=== PATIENT | male | born 1970 | race Caucasian/White ===

== ENCOUNTER 2023-03-03 17:24 | Inpatient (IN) | payer OTHER, SELFPAY ==
[2023-03-03 17:26] VITALS: BP 147/109; PULSE 109; RESP 14; TEMP 36.1; O2SAT 98
--- NOTE | 2023-03-03 17:29 | EKG12_ITS ---
Test Reason : CP Blood Pressure : / mmHG Vent. Rate : 103 BPM Atrial Rate : 103 BPM P-R Int : 158 ms QRS Dur : 074 ms QT Int : 332 ms P-R-T Axes : 047 025 072 degrees QTc Int : 434 ms Sinus tachycardia Septal infarct , age undetermined Abnormal ECG Confirmed by QUETA LOPEZ, KEMAL ([id number]), editor & co founder MISSAEL GARCIA ([id number]) on 03/07/2023 10:13:35 AM Referred By: Confirmed By:KEMAL BIRCH MD
[2023-03-03 17:30] VITALS: BMI 27.6
[2023-03-03 17:40] LABS: Absolute Lymphocyte Count 2.58 X10^3/uL (0.83-4.51); Absolute Neutrophil Count 7.1 X10^3/uL (2.0-7.7); Basophil# 0.06 X10^3/uL; Basophil% 0.6 % (0-1); Eosinophil# 0.17 X10^3/uL; Eosinophils% 1.6 % (0-5); Hematocrit 47.2 % (40-54); Lymphocyte # 2.58 X10^3/ul (0.83-4.51); Lymphocyte % 23.8 % (19-41); Mean Corp Hgb Conc 33.9 g/dL (32-36); Mean Corpuscular Hgb 28.2 pg (27.0-32.0); Mean Corpuscular Volume 83.2 fL (80-94); Monocyte# 0.87 X10^3/uL; NRBC Flagged by Analyzer 0 % (0-5); Neutrophil # 7.14 X10^3/uL (2.7-7.7); Neutrophil % 65.7 % (47-70); Platelet Count 270 K/mm3 (150-450); RBC Distribution Width CV 12.8 % (11.6-14.6); RBC Distribution Width SD 38.9 fl (35.1-43.9); Red Blood Count 5.67 M/mm3 (4.6-6.2); White Blood Count 10.9 K/mm3 (4.4-11.0)
[2023-03-03 18:09] LABS: Anion Gap 9 (5-15); BUN 12 mg/dL (7-18); BUN/Creat Ratio 11.2 RATIO (10-20); Calcium,Total 9.7 mg/dL (8.5-10.1); Chloride 99 mmol/L (98-107); Creatinine, Serum 1.07 mg/dL (0.70-1.30); EST Glomerular Filtration Rate 77 mL/min (>60); Est Glom Filt Rate - Afr Amer 93 mL/min (>60); Glucose 270 mg/dL (74-106); Potassium 3.6 mmol/L (3.5-5.1); Sodium Level 133 mmol/L (136-145); Troponin-I HS (w/2H Reflex) 5713 pg/mL (3.0-78.0)
--- NOTE | 2023-03-03 18:35 | RAD_ITS ---
EXAM: XR CHEST, 1 VIEW CLINICAL INDICATION: chest pain TECHNIQUE: Frontal view of the chest. COMPARISON: No relevant prior studies available. FINDINGS: LUNGS AND PLEURAL SPACES: Unremarkable. No consolidation or edema. No pneumothorax. No effusion. HEART: Unremarkable. Cardiac silhouette not enlarged. MEDIASTINUM: Central airways and mediastinal contour are unremarkable. BONES/JOINTS: Unremarkable. SOFT TISSUES: Unremarkable. RAD/Chest 1 View (Portable) IMPRESSION: No radiographic evidence of acute cardiopulmonary disease. Electronically Signed: Micky Sandoval MD at 18:52 EDT ,
--- NOTE | 2023-03-03 18:40 | NURSING ---
NO OLD EKGS
[2023-03-03] MEDS: Aspirin 81 MG TAB.CHEW 324 MG PO (18:42)
[2023-03-03 18:49] LABS: Prothrombin Time (Protime)PT. 12.8 SECONDS (11.7-14.9)
[2023-03-03 18:50] LABS: Partial Thromboplast Time 25.9 Seconds (24.1-36.2)
--- NOTE | 2023-03-03 19:09 | EDS_ITS ---
HPI History of Present Illness Chief Complaint: Chest Pain Narrative Narrative: 52-year-old male with strong family history for early coronary artery disease presents with chest pain since Monday. States his symptoms began when he had left-sided chest pain intermittently. Over the last few days, it has become more constant. He was wearing a tighter shirt which was rubbing underneath his axilla which she thought may have been the cause of his chest discomfort. He denies any nausea or vomiting, or diaphoresis currently. He states his pain became constant today at a 2 or 3 out of 10, but today was more constant and rates it 5-6 out of 10. No real exertional component to his pain as he states he was able to play golf today. He has past medical history of diabetes, and hypercholesterolemia. PFSH PFSH Allergy/AdvReac Type Severity Reaction Status Date / Time Penicillins [PCN] AdvReac Rash Verified 03/03/23 17:26 Social History Smoking Status: Never smoker ROS ROS ED ROS Narrative Constitutional: No fever, no chills. HEENT: No sore throat. No neck pain. No loss of vision. No rhinorrhea. Cardiovascular: Positive chest pain. No palpitations. No pedal edema. Respiratory: No cough, no shortness of breath. Abdominal: No abdominal pain. No nausea or vomiting currently. Genitourinary: No dysuria. No hematuria. Musculoskeletal: No myalgias. No arthralgias. Neurologic: No headaches. No dizziness. No lightheadedness. Positive paresthesias left arm. Skin: No rash. No change in color. Psychiatric: No depression. No anxiety. EXAM Physical Exam Narrative Exam Narrative: Afebrile. Vital signs noted. HEENT: Normocephalic. Atraumatic. PERRL, EOMI. Neck soft and supple. No point tenderness or step off. Cardiovascular: Positive tachycardia. No murmurs, rubs, or gallops appreciated. Respiratory: No tachypnea. Lungs clear to auscultation bilaterally. Gastrointestinal: Abdomen soft, nontender, with normoactive bowel sounds. No rebound or guarding. Neurological: Awake. Alert. Nonfocal, nonlateralizing. Skin: No rash. Normal color. No pallor. Musculoskeletal: No pedal edema. Full range of motion extremities. Const Vital Signs: 03/03/23 17:26 Temperature 97 F L Temperature Source Temporal Pulse Rate 109 H Respiratory Rate 14 Blood Pressure 147/109 H Blood Pressure Mean 121 Pulse Ox 98 Oxygen Delivery Method Room Air Heart Score History: Moderately Suspicious ECG: Normal Age: >45 - <65 years Risk Factors: 1 or 2 Risk Factors Troponin: >/=3 x Normal Limit Score: 5 MDM MDM MDM Narrative Medical decision making narrative: ED protocol chest pain labs were obtained. I interpreted his EKG as sinus tachy cardia at 103 bpm without ectopy or acute ST changes. No STEMI. There is no prior with which to compare. I reviewed his laboratory work and he has a normal white count of 10.9, hemoglobin normal at 16.0, normal platelet count of 270. Coagulation studies are negative with an APTT of 25.9. He is slightly hyponatremic at 133 with a normal potassium of 3.6, chloride normal at 99. Glucose is elevated at 270 consistent with his diabetes, but he has a normal anion gap of 9. I do not feel he is in a diabetic ketoacidosis. My interpretation of his chest x-ray in 1 view shows no acute process, no pneumothorax or pneumonia. I reviewed the radiology report which confirms my independent interpretation. Of significance his initial high-sensitivity troponin is elevated at 5713. I do feel that he has a non-STEMI. He was given baby aspirin and started on a heparin drip with bolus. No discussed patient with Dr. Hylton with cardiology who agrees with admission. I then discussed the patient with Dr. Austin who will admit the patient to the PCU. Patient is in stable condition. History & Record Review Discussion w/independent historian: Patient and Family Additional record(s) reviewed:: No prior records Lab Data Attestation: I reviewed the patient's lab results. Labs: Laboratory Results - last 24 hr 03/03/23 03/03/23 03/03/23 17:30 17:30 17:30 WBC 10.9 RBC 5.67 Hgb 16.0 Hct 47.2 MCV 83.2 MCH 28.2 MCHC 33.9 RDW Std Deviation 38.9 RDW Coeff of Maria Antonia 12.8 Plt Count 270 MPV 10.0 Immature Gran % (Auto) 0.300 Neut % (Auto) 65.7 Lymph % (Auto) 23.8 [place] % (Auto) 8.0 Eos % (Auto) 1.6 Baso % (Auto) 0.6 Absolute Neuts (auto) 7.1 Absolute Lymphs (auto) 2.58 Nucleated RBC % 0 PT 12.8 INR 1.0 APTT 25.9 Sodium 133 L Potassium 3.6 Chloride 99 Carbon Dioxide 25.0 Anion Gap 9 BUN 12 Creatinine 1.07 Est GFR (MDRD) Af Amer 93 Est GFR (MDRD) Non-Af 77 BUN/Creatinine Ratio 11.2 Glucose 270 H Calcium 9.7 Troponin I High Sens 5713 H* Radiography Diagnostic Testing: Clinical Impression(s) from Imaging Studies Chest X-Ray 03/03/23 18:35 IMPRESSION: No radiographic evidence of acute cardiopulmonary disease. Electronically Signed: Micky Sandoval MD at 18:52 EDT Reading Location ID and State: [facility] [place][note 3] / [place] , Service support , Management Discussion w/another healthcare provider: Hospitalist (Dr. Austin) and Buffer Chrome (Dr. Hylton, cardiology) Discharge Plan Triage Chief Complaint: Chest Pain ED Provider: Emery Morton Dx/Rx/DC Orders Primary Care Provider: Gray Silva Referrals: Gray Silva MD [Primary Care Provider] -
--- NOTE | 2023-03-03 19:19 | PCM.HP.STD ---
HPI - General General Date of Admission: 03/03/23 Date of Service: 03/03/23 Chief Complaint: chest pain HPI Narrative BETTY GIL, is a 52 M with a significant history of hyperlipidemia, and diabetes mellitus who presents emergency department with worsening left-sided intermittent chest pain that started 2 days before presentation. The pain later radiated to his right chest. Initially he felt a soft fluctuating fluid in her left armpit and he thought that was causing his symptoms. Also his shirt felt tight so he thought that may be the reason of his chest pain. He tried Pepto-Bismol; Gas-X and lying supine and that gave him some relief. Eating and lying on his left side made his pain worse. Although he denies that exertion worsens his pain on the day of presentation he went golfing and while golfing he felt some left-sided tingling sensation that went into his left fingers. Since his pain started he has had some mild nausea. He denies any diaphoresis or shortness of breath. Patient had 3 back surgeries. With one of the back surgeries his heart rhythm was irregular and he was found to have some inversions in the EKG. [facility] Medical History Diabetes Hyperlipidemia Home Medications glimepiride 4 mg tablet 4 mg PO BID 03/03/23 [History Last Taken Unknown] insulin glargine 100 unit/mL (3 mL) subcutaneous pen (Lantus Solostar U-100 Insulin) 10 unit subcut DAILY 03/03/23 [History Last Taken Unknown] sitagliptin phosphate 100 mg tablet (Januvia) 100 mg PO DAILY 03/03/23 [History Last Taken Unknown] Allergy/AdvReac Type Severity Reaction Status Date / Time Penicillins [PCN] AdvReac Rash Verified 03/03/23 17:26 Family History Other Heart disease Surgical History Previous back surgery Social History Smoking Status: Never smoker ROS ROS Narrative Pertinent positives and pertinent negatives as noted in HPI. All other systems were reviewed and are negative Vital Signs Vital Signs Vital Signs: 03/03/23 17:26 Temperature 97 F L Temperature Source Temporal Pulse Rate 109 H Respiratory Rate 14 Blood Pressure 147/109 H Blood Pressure Mean 121 Pulse Ox 98 Oxygen Delivery Method Room Air Weight Weight: 92.6 kg Body Mass Index (BMI) 27.6 Physical Exam Narrative Physical exam: General: Well-nourished, well-developed. Head: Normocephalic, atraumatic, no tenderness Eyes: Vision is grossly intact. EOMI ENT, no trauma, moist mucous membranes, no rhinorrhea Neck: Nontender, No thyromegaly. CVS: Regular rate and rhythm. S1-S2 present. No murmur, gallop or rub. Respiratory : clear to auscultation bilaterally, chest wall nontender Abdomen: Soft, nontender, nondistended, normal bowel sounds, no masses : Deferred Back: Nontender, no CVA tenderness, no midline spinal tenderness, deformities, step-offs Extremities: Nontender full range of motion, no trauma Skin: Normal color, no trauma, abrasions Neuro: Alert, oriented, cranial nerves II through XII grossly intact. Psychiatry: Normal mood. Normal affect. Not depressed. Not anxious. Results Lab / Micro Data Result Diagrams: 03/03/23 17:30 03/03/23 17:30 Labs: Laboratory Results - last 24 hr 03/03/23 17:30: WBC 10.9, RBC 5.67, Hgb 16.0, Hct 47.2, MCV 83.2, MCH 28.2, MCHC 33.9, RDW Std Deviation 38.9, RDW Coeff of Maria Antonia 12.8, Plt Count 270, MPV 10.0, Immature Gran % (Auto) 0.300, Neut % (Auto) 65.7, Lymph % (Auto) 23.8, [place] % (Auto) 8.0, Eos % (Auto) 1.6, Baso % (Auto) 0.6, Absolute Neuts (auto) 7.1, Absolute Lymphs (auto) 2.58, Nucleated RBC % 0 03/03/23 17:30: Sodium 133 L, Potassium 3.6, Chloride 99, Carbon Dioxide 25.0, Anion Gap 9, BUN 12, Creatinine 1.07, Est GFR (MDRD) Af Amer 93, Est GFR (MDRD) Non-Af 77, BUN/Creatinine Ratio 11.2, Glucose 270 H, Calcium 9.7, Troponin I High Sens 5713 H* 03/03/23 17:30: PT 12.8, INR 1.0, APTT 25.9 Radiology Impression Chest X-Ray 03/03/23 18:35 IMPRESSION: No radiographic evidence of acute cardiopulmonary disease. Electronically Signed: Micky Sandoval MD at 18:52 EDT , Assessment & Plan Assessment/Plan (1) NSTEMI, initial episode of care: (2) Hyperlipidemia: (3) Diabetes: PLAN: Plan NSTEMI Initial High sensitivity troponin was 5, 718. Trend. [address] on a monitored bed at progressive care unit. Impression of chest x-ray by radiology:No radiographic evidence of acute cardiopulmonary disease Actual CXR image was independently visualized. No acute cardiopulmonary process was noted. Actual EKG tracing was independently visualized. EKG tracing showed Q waves in septal leads. Mild sinus tachycardia Received full dose of aspirin in the emergency department. ASA 81 mg p.o. daily ordered SL NTG 0.4 mg prn as needed for chest pain ordered Morphine as needed for pain ordered We will check lipid panel. Statin: Reportedly he has been on multiple statins; and has allergies of muscle aches/cramping with statins. Zetia ordered Anticoagulation: Given heparin drip and started on heparin bolus at emergency department and continued. ED doc discussed with cardiology. Stat EKG as needed for chest pain Lisinopril and metoprolol ordered as blood pressure Tolerates. Diabetes type 2 Blood glucose is not within goal. We will keep patient n.p.o. after midnight in the setting of NSTEMI. If chest pain worsens patient may likely need an immediate cath. If not patient may get a cath in due course. While n.p.o. hold glimepiride. Januvia and Lantus continue. Accu-Chek correction scale insulin ordered. Pseudo-Hyponatremia Mild sodium of 133 Sodium corrected for glucose is 136. Trend BMP. Treatment of diabetes as above. Elevated blood pressure and blood angulus of hypertension Trend Lisinopril metoprolol for non-STEMI ordered. DVT prophylaxis Not indicated as patient's-started on heparin drip for NSTEMI. Charges/Coding Visit Charges Inpatient E&M: 93266 Init Hosp L3
[2023-03-03 19:25] VITALS: BP 149/102; PULSE 105; RESP 15; O2SAT 97
[2023-03-03] MEDS: Heparin Injection (Vial) 5,000 UNIT/ML VIAL 4000 UNIT IV (19:36)
[2023-03-03] MEDS: HEPARIN/D5w 25,000 UNITS 25,000 UNITS/250 ML IV.SOLN. 10 UNITS CONT INF (19:40)
[2023-03-03 19:45] VITALS: O2SAT 97
[2023-03-03 19:49] VITALS: BP 145/96; PULSE 103; RESP 20; TEMP 36.1; O2SAT 94
[2023-03-03 19:50] VITALS: BMI 28.3
[2023-03-03 20:05] VITALS: BP 144/97; PULSE 95; RESP 10; O2SAT 96
[2023-03-03 21:02] VITALS: BMI 27.8
--- NOTE | 2023-03-03 21:05 | ED.RN ---
THIS RN CONFIRMED IV HEPARIN DRIP INFUSING AT 10 ML/HR WITH Patricia KNIGHT RN. AT BEDSIDE . IV INTACT, PATENT, INFUSING. PUMP CONFIRMED AT 2104. CARE ASSUMED BY Patricia KNIGHT RN.
[2023-03-03 22:11] VITALS: O2SAT 95
[2023-03-03 22:26] LABS: Troponin-I HS 7687 pg/mL (3.0-78.0)
[2023-03-03 23:58] LABS: Bedside Glucose 266 mg/dL (74-106)
[2023-03-03] MEDS: Insulin Lispro 100 UNIT/ML INSULN.PEN SC (23:58)
[2023-03-04] VITALS (16 sets, daily range): BP systolic 96–124; BP diastolic 56–88; PULSE 79–89; RESP 16–18; TEMP 36.7–36.9; O2SAT 93–97
[2023-03-04 00:18] LABS: Bedside Glucose 300 mg/dL (74-106)
[2023-03-04 01:50] LABS: Troponin-I HS 9288 pg/mL (3.0-78.0)
[2023-03-04 01:54] LABS: Partial Thromboplast Time 39.3 Seconds (24.1-36.2)
[2023-03-04] MEDS: Heparin Injection (Vial) 5,000 UNIT/ML VIAL IV (02:06)
[2023-03-04] MEDS: Metoprolol(XL)Succ 25 MG Tablet 12.5 MG PO (06:15)
[2023-03-04] MEDS: Lisinopril 2.5 MG Tablet PO (06:15)
[2023-03-04] MEDS: Aspirin E.C. 81 MG Tablet PO (06:15)
[2023-03-04] MEDS: Ezetimibe 10 MG Tablet PO (06:18)
[2023-03-04 06:41] LABS: Bedside Glucose 290 mg/dL (74-106)
--- NOTE | 2023-03-04 08:02 | CON.PCM.CA_ITS ---
Assessment & Plan Assessment/Plan (1) NSTEMI, initial episode of care: PLAN: He does have a history of non-ST elevation myocardial infarction. Present presentation. He underwent a cardiac catheterization this morning which demonstrated the following: Normal left main coronary artery. Left anterior descending artery which is severely diseased with a 90% proximal long lesion involving the first diagonal branch. Left circumflex artery which is nondominant but large with a proximal 80% long lesion. Dominant right coronary artery also severely diseased with a 60% mid segment stenosis and a PDA with an ostial 80% stenosis. Left ventricular systolic dysfunction estimated at 45% with mild anterior hypokinesis. Based on the above angiographic findings I would recommend coronary artery bypass surgery for this patient. (2) Hyperlipidemia: PLAN: We will recommend aggressive risk factor modification with high intensity statin. HPI Consult Data Date of Consult: 03/04/23 HPI Narrative HPI Narrative: BETTY GIL, is a 52 M who presents with chest discomfort and. Described as a sharp discomfort and then radiating to the rest of his chest. He says this has been going on for the last 3 days. Got to be a heaviness associated with activity. He denied any dizziness or diaphoresis near syncope or syncope. He was concerned about the above so he presented to the emergency room. In the emergency room he was evaluated his EKG demonstrated minimal changes but his troponin was noted to be significantly elevated. Cardiology was called for further evaluation and management. He does have a history of hypertension, diabetes mellitus and hyperlipidemia. [facility] Medical History Diabetes Hyperlipidemia Home Medications glimepiride 4 mg tablet 4 mg PO BID 03/03/23 [History Last Taken Unknown] insulin glargine 100 unit/mL (3 mL) subcutaneous pen (Lantus Solostar U-100 Insulin) 10 unit subcut DAILY 03/03/23 [History Last Taken Unknown] sitagliptin phosphate 100 mg tablet (Januvia) 100 mg PO DAILY 03/03/23 [History Last Taken Unknown] Allergy/AdvReac Type Severity Reaction Status Date / Time Penicillins [PCN] AdvReac Rash Verified 03/03/23 17:26 Family History Other Heart disease Surgical History Previous back surgery Social History Smoking Status: Never smoker ROS Constitutional Constitutional: Denies fever(s) or weight loss Eyes Eyes: Reports systems reviewed and no addt'l complaints, except as documented ENT HEENT: Reports systems reviewed and no addt'l complaints, except as documented Cardiovascular Cardiovascular: Reports chest pain at rest and chest pain with activity; Denies dyspnea at rest, dyspnea on exertion, edema, palpitations or paroxysmal nocturnal dyspnea Respiratory/Chest Respiratory/Chest: Denies dyspnea on exertion, productive cough, shortness of breath at rest or shortness of breath with exertion Gastrointestinal Gastrointestinal: Denies change in bowel habits, nausea, vomiting or weight changes Genitourinary Genitourinary: Denies difficulty urinating Musculoskeletal Musculoskeletal: Denies joint stiffness or muscle weakness Integumentary Integumentary: Denies lesions Neurologic Neurologic: Denies dizziness or syncope Psychiatric Psychiatric: Denies anxiety Endocrine Endocrinology: Denies excessive sweating or fatigue Hematologic/Lymphatic Hematologic/Lymphatic: Denies anemia Allergic/Immunologic Allergic/Immunologic: Denies seasonal rhinorrhea Physical Exam Const alert, oriented x3 and no apparent distress General Appearance: cooperative HEENT hearing grossly normal bilaterally Head and Scalp: atraumatic Eyes EOMs intact bilaterally Neck General: normal visual inspection Chest inspection of chest normal and palpation of chest normal Resp normal respiratory effort Auscultation: clear to auscultation bilaterally Cardio regular rate, regular rhythm, S1 normal heart sound and S2 normal heart sound Jugular Venous Distention: JVD GI normal to inspection, nondistended, normoactive bowel sounds Extremity normal capillary refill and no pedal edema Peripheral Pulses: Yes pulses 2+ throughout and femoral pulses present Skin no rashes or lesions noted Neuro oriented x3 and CN's II-XII intact bilaterally Psych Appearance: grossly normal and appropriate Risk Stratification Risk Stratification Applicable: Yes Age >/= 65: No >/= 3 CAD Risk Factors (HTN, HLD, DM, family hx of CAD, or current smoker): No Aspirin Use in the Past 7 Days: No Severe Angina (>/= episodes in 24 hours): No EKG ST Changes >/= 0.5mm: No Positive Cardiac Marker: Yes CANDELARIO Risk Stratification Score: 1 CANDELARIO % Risk: 5% Risk Objective Data Vital Signs: Vital Signs Temp Pulse Resp BP Pulse Ox O2 Del Method 98.5 F 89 16 124/88 H 97 Room Air 03/04/23 07:33 03/04/23 07:33 03/04/23 07:33 03/04/23 07:33 03/04/23 07:33 03/04/23 07:33 Oxygen Delivery Method Room Air Weight: 205 lb 7.533 oz Body Mass Index (BMI) 27.8 Intake & Output: Intake and Output for Last 24 Hours 03/02/23 03/03/23 03/04/23 23:59 23:59 23:59 Intake Total 121.1 / 121.1 Balance 121.1 / 121.1 Lab / Micro Data Result Diagrams: 03/03/23 17:30 03/03/23 17:30 Labs: Laboratory Results - last 24 hr 03/03/23 17:30: WBC 10.9, RBC 5.67, Hgb 16.0, Hct 47.2, MCV 83.2, MCH 28.2, MCHC 33.9, RDW Std Deviation 38.9, RDW Coeff of Maria Antonia 12.8, Plt Count 270, MPV 10.0, Immature Gran % (Auto) 0.300, Neut % (Auto) 65.7, Lymph % (Auto) 23.8, [place]min[place] % (Auto) 8.0, Eos % (Auto) 1.6, Baso % (Auto) 0.6, Absolute Neuts (auto) 7.1, Absolute Lymphs (auto) 2.58, Nucleated RBC % 0 03/03/23 17:30: Sodium 133 L, Potassium 3.6, Chloride 99, Carbon Dioxide 25.0, Anion Gap 9, BUN 12, Creatinine 1.07, Est GFR (MDRD) Af Amer 93, Est GFR (MDRD) Non-Af 77, BUN/Creatinine Ratio 11.2, Glucose 270 H, Calcium 9.7, Troponin I High Sens 5713 H* 03/03/23 17:30: PT 12.8, INR 1.0, APTT 25.9 03/03/23 21:21: POC Glucose 266 H 03/03/23 22:00: Troponin I High Sens 7687 H* 03/03/23 23:57: POC Glucose 300 H 03/04/23 01:10: Troponin I High Sens 9288 H* 03/04/23 01:10: APTT 39.3 H 03/04/23 06:10: POC Glucose 290 H Cardiology Labs/Tests 03/03/23 17:30: WBC 10.9, RBC 5.67, Hgb 16.0, Hct 47.2, MCV 83.2, MCH 28.2, MCHC 33.9, Plt Count 270, MPV 10.0, Immature Gran % (Auto) 0.300, Neut % (Auto) 65.7, Lymph % (Auto) 23.8, [place]minn % (Auto) 8.0, Eos % (Auto) 1.6, Baso % (Auto) 0.6, Absolute Neuts (auto) 7.1, Nucleated RBC % 0 03/03/23 17:30: Sodium 133 L, Potassium 3.6, Chloride 99, Carbon Dioxide 25.0, Anion Gap 9, BUN 12, Creatinine 1.07, Est GFR (MDRD) Af Amer 93, Est GFR (MDRD) Non-Af 77, BUN/Creatinine Ratio 11.2, Glucose 270 H, Calcium 9.7 03/03/23 17:30: PT 12.8, INR 1.0, APTT 25.9 03/04/23 01:10: APTT 39.3 H Rhythm: EKG: ECHO: Stress Test: Cardiac Cath: PCI: CT Surgery: Holter monitor: EPS: PPM: CXR: Chest CT Scan: Radiography Diagnostic Testing: Radiology Impression Chest X-Ray 03/03/23 18:35 IMPRESSION: No radiographic evidence of acute cardiopulmonary disease. Electronically Signed: Micky Sandoval MD at 18:52 EDT Reading Location ID and State: [facility] / [place] , Service support ,
--- NOTE | 2023-03-04 09:15 | CASEMGMT ---
According to O website, the following tertiary facilities are in network: [facility], [facility], [facility], [facility], [facility], [facility], [facility] and . Updated via backline.
--- NOTE | 2023-03-04 09:37 | CL.D_ITS ---
Patient Name: BETTY GIL Study Date: 03/04/2023 Performing: Sebastian Hylton MD Ht: 72 inches 182.88 cm : 1970 Wt: 205.7 lbs 93.2 kg Age: 52 Gender: male BSA: 2.15 PROCEDURE(S) PERFORMED [id number])LHC/COR/LV CLINICAL PROFILE AND INDICATIONS Indications: ACS <= 24 hrs, Suspected CAD Heart Failure: None Stress/Imaging Stress/Image Study Performed: No CAD Presentations: Non-STEMI. Symptom onset Date/Time: 03/04/23 Time Not Available CONCLUSIONS Severe triple-vessel disease with a diabetic with a long LAD stenosis, disease in the circumflex artery. Moderate disease noted in the right coronary artery. Mild depression in left ventricular function. RECOMMENDATIONS Surgery consult for coronary revascularization DESCRIPTION OF PROCEDURE The patient arrived to the procedure lab. The risks and benefits of the procedure as well as a full description of our services here and current unavailability of surgical backup were fully explained to the patient and/or their significant other prior to the catheterization. The Timeout was completed, verifying the correct patient and procedure. The patient's procedural site was prepped and draped in the usual fashion. Local anesthetic was given subcutaneously to right radial region with Lidocaine 2%. Using a modified Seldinger technique, arterial access was obtained via the right radial artery, a 6Fr sheath was inserted. Left Coronary Artery selective angiography was performed in multiple views using a 5 Fr. 4.0 [place] catheter. Right Coronary Artery selective angiography was then performed in multiple views using a 5 Fr. 4.0 [place] catheter. Left Ventriculography was performed in LOPEZ projection using a 5 Fr. Pigtail catheter. LV to AO pullback pressures were then recorded.The arterial sheath was pulled and a TR Band was applied for hemostasis. 10cc air inserted. CORONARY ANGIOGRAPHY DOMINANCE: Right Dominant LEFT HEART ASSESSMENT Left Ventricular Ejection Fraction: by LV Gram 45 % Anterior Hypokinesis - Mild Depressed Left Ventricular systolic function LEFT MAIN: Angiographically normal LEFT ANTERIOR DESCENDING ARTERY: Mild calcification noted with a severely diseased proximal left anterior descending artery with 95% stenosis involving a first diagonal vessel as well. Small distal vessel is noted. CIRCUMFLEX ARTERY: Medium size vessel with 80% proximal to mid stenosis noted. RIGHT CORONARY ARTERY: Diffusely diseased right coronary artery with 60% mid segment stenosis and ostial 80% PDA stenosis present COMPLICATIONS No Complications PROCEDURE MEDICATIONS Fentanyl 50 mcg IV Versed 1 mg IV Versed 1 mg IV Versed 1 mg IV Oxygen: 2 L/min via nasal cannula SUMMARY OF HEMODYNAMIC DATA Time AIR REST ECG 07:59:58 AO 105/83 (94) SA 08:20:26 LV 95/4, 8 08:26:45 LV 94/3, 6 08:26:51 LV 85/5, 10 08:27:30 LVp 92/3, 7 08:27:43 AOp 96/66 (80) 08:27:49 Signed By Sebastian Hylton MD On 03/04/2023 09:36:08 Sebastian Hylton MD
[2023-03-04 10:26] LABS: Absolute Lymphocyte Count 2.09 X10^3/uL (0.83-4.51); Basophil# 0.04 X10^3/uL; Basophil% 0.5 % (0-1); Eosinophil# 0.13 X10^3/uL; Eosinophils% 1.6 % (0-5); Hematocrit 45.8 % (40-54); Hemoglobin 15.5 g/dL (13.0-16.5); Lymphocyte # 2.09 X10^3/ul (0.83-4.51); Lymphocyte % 26.1 % (19-41); Mean Corp Hgb Conc 33.8 g/dL (32-36); Mean Corpuscular Hgb 28.7 pg (27.0-32.0); Mean Corpuscular Volume 84.8 fL (80-94); Mean Platelet Vol. 9.9 fl (6.2-12.0); Monocyte# 0.71 X10^3/uL; Monocyte% 8.9 % (0-10); NRBC Flagged by Analyzer 0 % (0-5); Neutrophil # 5.04 X10^3/uL (2.7-7.7); Neutrophil % 62.8 % (47-70); Platelet Count 239 K/mm3 (150-450); RBC Distribution Width CV 13.1 % (11.6-14.6); RBC Distribution Width SD 40.2 fl (35.1-43.9)
[2023-03-04 10:36] LABS: Partial Thromboplast Time 30.4 Seconds (24.1-36.2)
[2023-03-04] MEDS: Insulin Glargine-YFGN 100 UNIT/ML Pen 10 UNIT SC (10:36)
[2023-03-04] MEDS: Insulin Lispro 100 UNIT/ML INSULN.PEN SC (10:38)
[2023-03-04] MEDS: LINAGLIPTIN 5 MG TABLET PO (10:40)
[2023-03-04 11:06] LABS: Bedside Glucose 254 mg/dL (74-106)
[2023-03-04 11:08] LABS: Anion Gap 8 (5-15); BUN 10 mg/dL (7-18); Chloride 101 mmol/L (98-107); Cholesterol 236 mg/dL (200); EST Glomerular Filtration Rate 83 mL/min (>60); Est Glom Filt Rate - Afr Amer 100 mL/min (>60); Estimated Creatinine Clearance 93.77 ml/min; Glucose 282 mg/dL (74-106); High Density Lipoprotein 47 mg/dL; Sodium Level 134 mmol/L (136-145); Triglycerides 115 mg/dL; Very Low Density Lipoprotein 23 mg/dL (5-40)
--- NOTE | 2023-03-04 11:42 | DCINST_ITS ---
Discharge Instructions Diet Discharge Diet: - (DASH diet) Activity Discharge Activity: Return to Normal Activity Follow Up Care Test Results: Test results from this visit will be discussed in further detail at your follow- up appointment, if applicable. Discharge Plan Admission Admit Date/Time: 03/03/23 19:12 Primary Reason for Your Visit: Chest pain Attending Provider: Abbi Black Primary Care Provider: Gray Silva Consulting Providers: Sebastian Hylton ; Rick Austin Instructions Patient Instructions: Heart Attack Dc Discharge Orders/Prescriptions Prescriptions: No Action glimepiride 4 mg tablet 4 mg PO BID Januvia 100 mg tablet 100 mg PO DAILY insulin glargine [Lantus Solostar U-100 Insulin] 100 unit/mL (3 mL) insulin pen 10 unit SUBCUT DAILY Referrals / Follow Up: Gray Silva MD [Primary Care Provider] - Within 1 Week Disposition Disposition (needs filled in before D/C Order can be placed): [facility]
--- NOTE | 2023-03-04 11:44 | DS.PCM_ITS ---
Providers Date of Admission: 03/03/23 Date of Discharge: 03/04/23 Primary Care Physician: Dr. Gray Silva MD Consultations 03/03/23 20:59 Consult: Cardiology Routine Consulting Provider: Sebastian Hylton Reason for Consult: nstemi EMERGENT Consult: No MD Notified: Yes Date Notified: 03/03/23 Time Notified: 19:16 Method of Notification: ED Physician Initiated Reason For Visit: NON STEMI Diagnosis Discharge Diagnosis (1) NSTEMI, initial episode of care: Status: Acute Code(s): I21.4 - Non-ST elevation (NSTEMI) myocardial infarction (2) Hyperlipidemia: Status: Acute Code(s): E78.5 - Hyperlipidemia, unspecified (3) CAD (coronary artery disease): Status: Acute Code(s): I25.10 - Atherosclerotic heart disease of [place] coronary artery without angina pectoris (4) Diabetes: Status: Acute Code(s): E11.9 - Type 2 diabetes mellitus without complications Plan Transfer to [facility] for CABG eval Medications at Discharge Home Medications glimepiride 4 mg tablet 4 mg PO BID 03/03/23 insulin glargine 100 unit/mL (3 mL) subcutaneous pen (Lantus Solostar U-100 Insulin) 10 unit subcut DAILY 03/03/23 sitagliptin phosphate 100 mg tablet (Januvia) 100 mg PO DAILY 03/03/23 Hospital Course Procedures - (Cardiac catheterization) Summary of Care Provided Minutes Spent on Discharge: 20 Hospital Course: Per HPI 03/03: BETTY GIL, is a 52 M with a significant history of hyperlipidemia, and diabetes mellitus who presents emergency department with worsening left-sided intermittent chest pain that started 2 days before presentation.? The pain later radiated to his right chest.? Initially he felt a soft fluctuating fluid in her left armpit and he thought that was causing his symptoms.? Also his shirt felt tight so he thought that may be the reason of his chest pain.? He tried Pepto-Bismol; Gas-X and lying supine and that gave him some relief.? Eating and lying on his left side made his pain worse.? Although he denies that exertion worsens his pain on the day of presentation he went golfing? and while golfing he felt some left-sided tingling sensation that went into his left fingers. ? Since his pain started he has had some mild nausea.? He denies any diaphoresis or shortness of breath. Patient had 3 back surgeries.? With one of the back surgeries his heart rhythm was irregular and he was found to have some inversions in the EKG. INTERIM HISTORY: EKG with Q waves in septal leads, received full dose aspirin and started on aspirin 81 mg daily. Started on heparin drip and cardiology evaluated and performed left heart cath. Left heart cath 03/04/2023 with severe triple-vessel disease in a diabetic with long LAD stenosis and disease in the circumflex artery. Moderate disease in right coronary artery and mild depression in left ventricular function. It was recommended that he be transferred for CABG evaluation. Patient accepted to [facility] and was transferred 03/04/2023. Prior to discharge he had no complaints and no chest pain or shortness of breath. Physical Exam Narrative General: Alert, oriented, no apparent distress HEENT: Atraumatic, normocephalic Eyes: Anicteric, normal conjunctiva, extraocular movements grossly intact Neck: Supple Respiratory: Clear to auscultation bilaterally, normal respiratory effort Cardiovascular: Regular rate and rhythm GI: Soft, nontender, nondistended Extremities: No edema Musculoskeletal: Moving all extremities Neuro: No overt focal neurological deficits Skin: No rashes appreciated Psych: Cooperative Weight / BMI Weight Weight: 93.2 kg Body Mass Index (BMI) 27.8 ABG / Lab / Microbiology Data Result Diagrams: 03/04/23 10:12 03/04/23 10:12 Laboratory: Laboratory Results - last 24 hr 03/03/23 17:30: WBC 10.9, RBC 5.67, Hgb 16.0, Hct 47.2, MCV 83.2, MCH 28.2, MCHC 33.9, RDW Std Deviation 38.9, RDW Coeff of Maria Antonia 12.8, Plt Count 270, MPV 10.0, Immature Gran % (Auto) 0.300, Neut % (Auto) 65.7, Lymph % (Auto) 23.8, Harals[place] % (Auto) 8.0, Eos % (Auto) 1.6, Baso % (Auto) 0.6, Absolute Neuts (auto) 7.1, Absolute Lymphs (auto) 2.58, Nucleated RBC % 0 03/03/23 17:30: Sodium 133 L, Potassium 3.6, Chloride 99, Carbon Dioxide 25.0, Anion Gap 9, BUN 12, Creatinine 1.07, Est GFR (MDRD) Af Amer 93, Est GFR (MDRD) Non-Af 77, BUN/Creatinine Ratio 11.2, Glucose 270 H, Calcium 9.7, Troponin I High Sens 5713 H* 03/03/23 17:30: PT 12.8, INR 1.0, APTT 25.9 03/03/23 21:21: POC Glucose 266 H 03/03/23 22:00: Troponin I High Sens [id number] H* 03/03/23 23:57: POC Glucose 300 H 03/04/23 01:10: Troponin I High Sens 9288 H* 03/04/23 01:10: APTT 39.3 H 03/04/23 06:10: POC Glucose 290 H 03/04/23 10:12: WBC 8.0, RBC 5.40, Hgb 15.5, Hct 45.8, MCV 84.8, MCH 28.7, MCHC 33.8, RDW Std Deviation 40.2, RDW Coeff of Maria Antonia 13.1, Plt Count 239, MPV 9.9, Immature Gran % (Auto) 0.100, Neut % (Auto) 62.8, Lymph % (Auto) 26.1, Har[place] % (Auto) 8.9, Eos % (Auto) 1.6, Baso % (Auto) 0.5, Absolute Neuts (auto) 5.0, Absolute Lymphs (auto) 2.09, Nucleated RBC % 0 03/04/23 10:12: Sodium 134 L, Potassium 4.0, Chloride 101, Carbon Dioxide 25.0, Anion Gap 8, BUN 10, Creatinine 1.00, Estim Creat Clear Calc 93.77, Est GFR (MDRD) Af Amer 100, Est GFR (MDRD) Non-Af 83, BUN/Creatinine Ratio 10.0, Glucose 282 H, Calcium 9.0, Triglycerides 115, Cholesterol 236 H, LDL Cholesterol 166 H, VLDL Cholesterol 23, HDL Cholesterol 47 03/04/23 10:12: APTT 30.4 03/04/23 10:35: POC Glucose 254 H Radiography Diagnostic Testing: Radiology Impression Chest X-Ray 03/03/23 18:35 IMPRESSION: No radiographic evidence of acute cardiopulmonary disease. Electronically Signed: Micky Sandoval MD at 18:52 EDT , D/C Instructions Discharge Diet: - (DASH diet) Meaningful Use Info Meaningful Use Diagnoses (Choose all that apply): AMI AMI/Post PCI/Angioplasty Aspirin given w/in 24hrs of arrival?: Yes ASA at discharge?: Yes Statins at discharge?: Yes Branden/ARB at discharge?: Yes Beta Vinnie at discharge?: Yes Done w/ Acute DE measure.: Yes Documented LVEF (%): 45 Discharge Plan Admission Admit Date/Time: 03/03/23 19:12 Primary Reason for Your Visit: Chest pain Attending Provider: Abbi Black Primary Care Provider: Gray Silva Consulting Providers: Sebastian Hylton ; Rick Austin Instructions Patient Instructions: Heart Attack Dc Discharge Orders/Prescriptions Prescriptions: No Action glimepiride 4 mg tablet 4 mg PO BID Januvia 100 mg tablet 100 mg PO DAILY insulin glargine [Lantus Solostar U-100 Insulin] 100 unit/mL (3 mL) insulin pen 10 unit SUBCUT DAILY Referrals / Follow Up: Gray Silva MD [Primary Care Provider] - Within 1 Week Disposition Disposition (needs filled in before D/C Order can be placed): Acute Care Hospital Charges/Coding Visit Charges Inpatient E&M: 41329 [facility] L1
== END 2023-03-04 12:59 | disposition short-term general hospital (02) | DRG 282 ==
LOC: ED 18:50 → PCU 19:50
PROVIDERS: Admitting Provider Hospitalist; Emergency Provider Emergency Medicine; PCP Family Medicine; Visit Provider Internal Medicine
DX: I21.4 Non-ST elevation (NSTEMI) myocardial infarction (principal); E11.65 Type 2 diabetes mellitus with hyperglycemia; Z79.4 Long term (current) use of insulin; I10 Essential (primary) hypertension; E78.00 Pure hypercholesterolemia, unspecified; I25.10 Atherosclerotic heart disease of native coronary artery without angina pectoris; Z79.84 Long term (current) use of oral hypoglycemic drugs; Z79.899 Other long term (current) drug therapy; Z82.49 Family history of ischemic heart disease and other diseases of the circulatory system
CPT/HCPCS: 36415; 71045; 80048; 80061; 82962; 84484; 85025; 85610; 85730; 93005; 93458; 99152; 99284; J7040; A4216; C1769; C1894; Q9967

== ENCOUNTER → 2023-07-13 | Outpatient (CLI) | payer OTHER, SELFPAY ==
--- NOTE | 2023-07-13 10:03 | ECHOL_ITS ---
Reason For Study: s/p CABG Procedure This was a limited 2D transthoracic echocardiogram. Myocardial strain analysis was performed in this exam to aid in the assessment of cardiac function. Exam performed in department. Left Ventricle Normal LV size. Left ventricular systolic function is normal. The estimated ejection fraction is 56 %. No regional wall motion abnormalities noted. Right Ventricle Normal RV size. Normal systolic function. Aortic Valve Normal aortic valve. Great Vessels Normal aortic root. Pericardium/Pleural No pericardial effusion. MMode/2D Measurements & Calculations LVIDd: 4.4 cm IVSd: 1.1 cm LA dimension: 3.3 cm LVIDs: 3.0 cm LVPWd: 0.98 cm FS: 32.0 % LAV(MOD-sp4): 26.3 ml SV(MOD-sp4): 42.0 ml LVAd ap4: 26.6 cm2 LVLd ap4: 7.5 cm EDV(MOD-sp4): 77.4 ml EDV(sp4-el): 80.3 ml LVAs ap4: 16.9 cm2 LVLs ap4: 6.9 cm ESV(MOD-sp4): 35.4 ml ESV(sp4-el): 35.1 ml EF(MOD-sp4): 54.3 % EF(sp4-el): 56.3 % SV(sp4-el): 45.2 ml LA A4 area: 13.1 cm2 RA A4 area: 14.3 cm2 Doppler Measurements & Calculations Lat Peak E' Rehan: 15.0 cm/sec Med Peak E' Rehan: 8.1 cm/sec ECHO/Echo, Limited Study Interpretation Summary Normal LV size. Left ventricular systolic function is normal. The global longitudinal strain is moderately abnormal. The global longitudinal strain = -14.7% (abnormal). Ordering Physician: Jalil Oden Referring Physician: Jalil Oden Performed By: Aldo Brasher RCS
== END | disposition home or self-care (01) ==
LOC: CVS 09:57
PROVIDERS: PCP Family Medicine; Referring Provider Nurse Practitioner Family; Visit Provider Nurse Practitioner Family
DX: I25.10 Atherosclerotic heart disease of native coronary artery without angina pectoris (principal); I48.91 Unspecified atrial fibrillation; E11.9 Type 2 diabetes mellitus without complications; E78.5 Hyperlipidemia, unspecified; I97.89 Other postprocedural complications and disorders of the circulatory system, not elsewhere classified
CPT/HCPCS: 93308

== ENCOUNTER → 2024-12-26 | Outpatient (CLI) | payer OTHER, SELFPAY ==
--- NOTE | 2024-12-26 11:05 | ECHOD_ITS ---
Reason For Study Reason For Study: CAD/ASHD Procedure This was a 2D Doppler, Color Flow transthoracic echocardiogram. Myocardial strain analysis was performed in this exam to aid in the assessment of cardiac function. Exam performed in department. Left Ventricle Normal LV size. Left ventricular systolic function is normal. The left ventricular ejection fraction is 55 %. No regional wall motion abnormalities noted. Right Ventricle Normal RV size. Normal systolic function. Atria Normal left atrium. Normal right atrium. Mitral Valve Normal mitral valve. Tricuspid Valve Normal tricuspid valve. Aortic Valve Trisinus/trileaflet aortic valve. Pulmonic Valve Normal pulmonic valve. Great Vessels Normal aortic root. The pulmonary artery is normal size. Normal inferior vena cava. Pericardium/Pleural No pericardial effusion. MMode/2D Measurements & Calculations LVIDd: 4.7 cm IVSd: 0.84 cm LVOT diam: 2.1 cm LVIDs: 3.3 cm LVPWd: 0.75 cm LVOT area: 3.5 cm2 FS: 29.1 % Ao root diam: 2.6 cm LAV(MOD-bp): 33.9 ml LVAd ap4: 27.1 cm2 LAV(MOD-bp) Indexed: 16.7 ml/m2 LVLd ap4: 7.8 cm LAV(MOD-sp2): 45.9 ml EDV(MOD-sp4): 81.3 ml LAV(MOD-sp4): 26.6 ml EDV(sp4-el): 80.3 ml LVAs ap4: 15.0 cm2 LVLs ap4: 7.2 cm ESV(MOD-sp4): 27.0 ml ESV(sp4-el): 26.6 ml EF(MOD-sp4): 66.7 % EF(sp4-el): 66.9 % SV(MOD-sp4): 54.3 ml SV(sp4-el): 53.7 ml LA A4 area: 12.6 cm2 SI(MOD-sp4): 26.6 ml/m2 LA dimension(2D): 3.7 cm RA A4 area: 9.2 cm2 Time Measurements MV dec time: 0.08 sec Doppler Measurements & Calculations MV E max rehan: 76.5 cm/sec Lat Peak E' Rehan: 13.1 cm/sec Med Peak E' Rehan: 7.9 cm/sec MV A max rehan: 55.3 cm/sec E/E' lat: 5.8 E/E' med: 9.7 MV E/A: 1.4 MV V2 max: 86.0 cm/sec Ao V2 max: 114.5 cm/sec MV max P.0 mmHg MV dec slope: 965.8 cm/sec2 Ao max P.2 mmHg MV V2 mean: 55.3 cm/sec Ao V2 mean: 80.4 cm/sec MV mean P.4 mmHg Ao mean P.0 mmHg MV V2 VTI: 25.0 cm Ao V2 VTI: 24.4 cm AV (velocity ratio): 0.92 MVA(VTI): 3.1 cm2 DEYANIRA(I,D): 3.2 cm2 DEYANIRA(V,D): 3.2 cm2 LV V1 max: 104.9 cm/sec SV(LVOT): 77.7 ml PA V2 max: 116.9 cm/sec LV V1 max P.4 mmHg PA V2 mean: 81.0 cm/sec LV V1 mean P.4 mmHg LV V1 mean: 72.0 cm/sec LV V1 VTI: 22.4 cm PI end-d rehan: 106.4 cm/sec ECHO/Echo Complete Interpretation Summary Normal LV size. Left ventricular systolic function is normal. The left ventricular ejection fraction is 55 %. The global longitudinal strain is moderately abnormal. The global longitudinal strain = -14% (abnormal). Ordering Physician: Sebastian Hylton Referring Physician: Sebastian Hylton Performed By: Widder, Fay, RCS
== END | disposition home or self-care (01) ==
LOC: CVS 11:04
PROVIDERS: PCP Family Medicine; Referring Provider Internal Medicine Cardiovascular Disease; Visit Provider Internal Medicine Cardiovascular Disease
DX: I25.5 Ischemic cardiomyopathy (principal)
CPT/HCPCS: 93306